=== PATIENT | female | born 1930 | race Caucasian/White ===

== ENCOUNTER 2019-09-15 09:16 | Inpatient (IN) | payer MEDICARE, MEDICAID ==
[2019-09-15] MEDS ORDERED: methylPREDNISolone Sod Succ/PF 125 MG/2 ML VIAL ONE (09:45)
--- NOTE | 2019-09-15 09:49 | RAD ---
RADIOGRAPH CHEST 1 VIEW: DATE: 09/15/2019 TIME: 9:22 AM HISTORY: 88-year-old female with productive cough and dyspnea COMPARISON: none FINDINGS: There is a mild infiltrate at the right lung base. No cardiomegaly or pulmonary edema. Left lung is c lear. Possible small right pleural effusion. No pneumothorax. IMPRESSION: Evidence for pneumonia at the right lung base.
[2019-09-15 10:07] LABS: ALT (SGPT) Less than 7 U/L (8-55); AST (SGOT) 20 U/L (5-34); Albumin 3.7 g/dL (3.4-4.8); Alkaline Phosphatase 115 U/L (40-110); Anion Gap 13 mmol/L (10-20); BUN (Urea Nitrogen) 21 mg/dL (9.8-20.1); Bilirubin, Total 0.9 mg/dL (0.2-1.2); Calc. Creatinine Clearance 0 mL/min (70-130); Calcium 9.3 mg/dL (7.8-10.44); Carbon Dioxide 28 mmol/L (23-31); Chloride 91 mmol/L (98-107); Estimated GFR-MDRD 36; Globulin 2.7 g/dL (2.4-3.5); Glucose 186 mg/dL (83-110); Potassium 4.2 mmol/L (3.5-5.1); Protein, Total 6.4 g/dL (6.0-8.3); Sodium 128 mmol/L (136-145)
[2019-09-15 10:11] LABS: Hemoglobin 13.2 g/dL (12.0-16.0); Mean Corpuscular HGB CONC 33.1 g/dL (32.0-36.0); Mean Corpuscular Hemoglobin 32.4 pg (27.0-31.0); Mean Corpuscular Volume 97.8 fL (78.0-98.0); Mean Platelet Volume 9.4 fL (7.4-10.4); Platelet Count 286 thou/uL (130-400); RBC Distribution Width 11.7 % (11.5-14.5); Red Blood Cell (RBC) Count 4.07 mill/uL (4.20-5.40)
[2019-09-15 10:17] LABS: CKMB 2.2 ng/mL (0-6.6)
[2019-09-15 10:28] LABS: Band 4 % (5-11); Eosinophils 1 % (0-10); Lymphocytes 5 % (21-51); MDiff Complete? YES; Monocytes 9 % (0-10); Neutrophil 81 % (42-75); Platelet Morphology Comment Appears Adequate; RBC Morphology Normal; White Blood Cell (WBC) Count 23.7 thou/uL (4.8-10.8)
[2019-09-15] MEDS ORDERED: Sodium Chloride 0.9% 100 ML ONE (10:54)
[2019-09-15] MEDS ORDERED: Cefepime 2 GM VIAL ONE (10:54)
[2019-09-15] MEDS ORDERED: Ondansetron PF 4 MG/2 ML Vial IVP PRN (14:39)
[2019-09-15 15:09] LABS: Lactic Acid 2.1 mmol/L (0.5-2.2)
--- NOTE | 2019-09-15 15:35 | HP ---
PRIMARY CARE PHYSICIAN: Out of town. CHIEF COMPLAINT: Shortness of breath, cough, and weakness x5-6 days. HISTORY OF PRESENT ILLNESS: An 88-year-old female who was visiting the town with a past medical history of COPD, prior nicotine dependence, hypertension, dyslipidemia, CHF of unspecified type, unspecified heart murmur, hypothyroidism, osteoarthritis, who was brought in to [facility] by her son for a 6-day history of worsening dyspnea and increased weakness associated with intermittent nonproductive cough, difficulty in expectorating, not relieved with 3 times per day albuterol nebulizer treatments, and complains of increased sinus drainage, prompting ER evaluation. The patient denies any headaches, fevers, chills, nausea, vomiting, diarrhea, dizziness or disorientation, near-syncope, or syncope. She denies any recent sick contacts. She has received influenza vaccine this season. She denies any changes to her medication regimen. In the ER, T-max was afebrile. Initial lactic acid was 3.2 with white blood cell count of 23.7. Chemistries revealing hyponatremia with BUN and creatinine of 21/1.37 and chest x-ray, one view, revealing right lower lobe infiltrate. Influenza antigen was negative. The patient was administered 1 L normal saline bolus, nebulized bronchodilator, and 25 mg IV Solu-Medrol, IV Levaquin, IV cefepime, and admitted for further inpatient evaluation for right lower lobe pneumonia and COPD exacerbation. Oxygen saturation has not been hypoxic. At bedside, the patient reports feeling a little better since arrival. She offers no other acute complaints and feels overall weak. She notes okay appetite. She denies any earaches or headache complaints. She recently traveled from to [place] via airplane and denies any prolonged immobility, lower extremity asymmetry or pain, and denies any personal or family history of venous thromboembolism. PAST MEDICAL HISTORY: COPD, prior nicotine dependence, hypertension, dyslipidemia, congestive heart failure unspecified time, unspecified murmur, hypothyroidism, osteoarthritis. PAST SURGICAL HISTORY: Multiple tumor removal. SOCIAL HISTORY: The patient admits to prior tobacco use, none currently. She uses a walker at baseline. She does not use home oxygen. ALLERGIES: LISTED TO PENICILLIN, STREPTOMYCIN, XANAX, AND TYLENOL. REVIEW OF SYSTEMS: Pertinent positives as per HPI. Remainder review of systems negative. HOME MEDICATIONS: Reviewed as per admission medication reconciliation. FAMILY HISTORY: The patient's father from heart disease at age 55. The patient has family history of lung disease as well too. PHYSICAL EXAMINATION: VITAL SIGNS: T-max afebrile 99.2, pulse 85 to 101, blood pressure ranges from 129/63 to 179/84, oxygen 94% to 97% on room air, respirations 14 to 16 and unlabored. GENERAL APPEARANCE: This is an elderly, frail-appearing female, who is awake, alert, oriented, malaise in appearance. HEENT: Normocephalic, atraumatic. There is chronic facial asymmetry. Pupils equally round. Extraocular muscles intact. NECK: Supple. CARDIOVASCULAR: S1 and S2, regular rate and rhythm. Harsh murmur noted in the left parasternal border. No chest wall tenderness to palpation. LUNGS: Nonlabored respiration on bilateral posterior auscultation, diminished inspiratory effort with poor air movement and coarse breath sounds throughout, presumably in the bases, right greater than left. ABDOMEN: Soft, nontender, nondistended. EXTREMITIES: No edema, cyanosis, or deformity. SKIN: Warm to touch without rash or pallor or abrasion. LABORATORY DATA: WBC 23.7, H and H 13.2/39.8, and platelets 286. Sodium 128, potassium 4.2, chloride 91, bicarb 28, glucose 186, BUN and creatinine 21/1.37, and GFR 36. Lactic acid 3.2 with repeat pending. Troponin-I 0.033 with repeat pending. Influenza antigen negative. IMAGING STUDIES: One-view chest x-ray personally reviewed, reveals evidence for pneumonia at the right lung base. No cardiomegaly or pulmonary edema. ASSESSMENT: 1. Acute exacerbation of chronic obstructive pulmonary disease secondary to community-acquired pneumonia. 2. Community-acquired pneumonia. 3. Hyponatremia. 4. Elevated creatinine of unclear acuity, possibly acute kidney injury. 5. Generalized weakness and deconditioning. 6. Congestive heart failure history of unspecified type, not in exacerbation. 7. Unspecified heart murmur. 8. Hypertension, uncontrolled. 9. Dyslipidemia. 10. Hypothyroidism. PLAN: 1. The patient will be admitted as inpatient status and placed on telemetry monitoring for acute COPD exacerbation secondary to community-acquired pneumonia. We will continue with IV Rocephin, IV Zithromax, continue parenteral glucocorticoids, continue nebulized bronchodilators, continue low rate isotonic saline, and monitor for clinical improvement. We will repeat a.m. labs on 09/16/2019. Home medications will be reconciled once list is available. We will monitor renal function of unclear acuity. Plan of care was discussed with the patient and her son at bedside. 2. DVT prophylaxis: Renally dosed Lovenox. 3. Code status: DNR/DNI as discussed with patient who reports having advanced directives. 4. Check a.m. labs. Job ID: [id number]
[2019-09-15] MEDS: cefTRIAXone\\ROCEPHIN 1 GM in Sodium Chloride 0.9% 100 ML IVPB SCH (17:50)
[2019-09-15] MEDS: Sodium Chloride 0.9% 1,000 ML IV SCH (17:51)
[2019-09-15 18:21] LABS: Troponin I Less than 0.010 ng/mL (< 0.028)
[2019-09-15] MEDS: methylPREDNISolone Sod Succ 40 MG VIAL IVP SCH (21:38)
[2019-09-15 22:49] LABS: Legionella Urinary Ag Negative (Negative)
[2019-09-16 05:24] LABS: Anion Gap 15 mmol/L (10-20); BUN (Urea Nitrogen) 17 mg/dL (9.8-20.1); Calc. Creatinine Clearance 31 mL/min (70-130); Calcium 8.1 mg/dL (7.8-10.44); Carbon Dioxide 20 mmol/L (23-31); Chloride 98 mmol/L (98-107); Estimated GFR-MDRD 61; Glucose 138 mg/dL (83-110); Potassium 4.1 mmol/L (3.5-5.1); Sodium 129 mmol/L (136-145)
[2019-09-16 05:27] LABS: Band 17 % (5-11); Hypochromia SLIGHT = 6-15 cells (100X) (0-5/hpf); Lymphocytes 4 % (21-51); MDiff Complete? YES; Mean Corpuscular HGB CONC 33.5 g/dL (32.0-36.0); Mean Corpuscular Hemoglobin 32.4 pg (27.0-31.0); Mean Corpuscular Volume 96.8 fL (78.0-98.0); Neutrophil 79 % (42-75); Platelet Count 242 thou/uL (130-400); Platelet Morphology Comment Appears Adequate; RBC Distribution Width 11.6 % (11.5-14.5); White Blood Cell (WBC) Count 14.3 thou/uL (4.8-10.8)
[2019-09-16] MEDS: Sodium Chloride 0.9% 1,000 ML IV SCH ×3 (05:57→21:59)
[2019-09-16] MEDS: methylPREDNISolone Sod Succ 40 MG VIAL IVP SCH ×2 (05:57→21:59)
[2019-09-16] MEDS: Azithromycin 500 MG in Sodium Chloride 0.9% 250 ML 250 ML IVPB SCH (08:48)
[2019-09-16] MEDS: Enoxaparin Sodium 40 MG/0.4 ML SYRINGE SC SCH (08:48)
--- NOTE | 2019-09-16 11:38 | PDOC.HOSPP ---
- Subjective Encounter Date: 09/16/19 Encounter Time: 11:38 Subjective: cc: followup for sepsis, cap, copd exacerbation subjective: patient seen at bedside. son present. patient feels better. still feels weak and short of breath. has difficulty expectorating phlegm. felt that breathing treatments helped. nurse notes no acute events. patient wants home medications restarted. - Objective Vital Signs & Weight: Vital Signs (12 hours) Temp Pulse Resp BP Pulse Ox 09/16/19 10:19 87 16 09/16/19 08:22 98.6 F 87 18 182/86 H 93 L 09/16/19 07:26 91 20 09/16/19 04:24 88 18 168/80 H 09/16/19 04:02 97.3 F L 85 20 182/86 H 94 L 09/16/19 00:00 89 163/79 H Weight Weight 96 lb 8 oz I&O: 09/15/19 09/16/19 09/17/19 06:59 06:59 06:59 Intake Total 1022 Output Total 350 Balance 672 Result Diagrams: 09/16/19 04:48 09/16/19 04:48 Hospitalist ROS - Review of Systems Other: ROS: pertinent positives per SUBJECTIVE; remainder ROS negative - Medication Medications: Active Medications Generic Name Dose Route Start Last Admin Trade Name Freq PRN Reason Stop Dose Admin Albuterol/Ipratropium 3 ml 09/15/19 14:46 09/16/19 10:19 Duoneb EZPAP 3 ml [id number] PRN Administration SOB &/or Wheezing Enoxaparin Sodium 40 mg 09/16/19 09:00 09/16/19 08:48 Lovenox SC 40 mg 0900 CRISTIAN Administration Azithromycin 500 mg/ Sodium 250 mls @ 250 mls/hr 09/16/19 09:00 09/16/19 08: 48 Chloride IVPB 250 mls Q24HR CRISTIAN Administration Ceftriaxone Sodium 1 gm/ 100 mls @ 200 mls/hr 09/15/19 16:00 09/15/19 17:50 Sodium Chloride IVPB 100 mls Q24HR CRISTIAN Administration Sodium Chloride 1,000 mls @ 75 mls/hr 09/15/19 15:00 09/16/19 05:57 Normal Saline 0.9% IV 1,000 mls .[id number] CRISTIAN Administration Methylprednisolone Sodium Succinate 40 mg 09/15/19 22:00 09/16/19 05:57 Solu-Medrol IVP 40 mg Q8HR CRISTIAN Administration - Exam General Appearance: awake alert Eye: PERRL, anicteric sclera ENT: normocephalic atraumatic, no oropharyngeal lesions Neck: supple Heart: RRR, no murmur Respiratory: no rales, tachypneic Respiratory - other findings: decreased right basilar breath sounds. no significant wheezing. Extremities: no cyanosis, no clubbing, no edema Skin: normal turgor, no lesions, no rashes Neurological: cranial nerve grossly intact, normal sensation to touch, no focal deficits Musculoskeletal: generalized weakness Psychiatric: normal behavior, A&O x 3, oriented to person, oriented to place Hosp A/P - Plan ASSESSMENT AND PLAN: sepsis due to CAP. continue IV rocephin, IV zithromax, wean IV steroids, continue IVF, start scheduled nebulizers, start mucinex DM, Claritin, consult PT and OT, check ambulatory oxygen and monitor for symptom improvement COPD exacerbation. wean IV steroids, continue nebulizers. RPP negative. Sinus tachycardia. restart atenolol Hypertension, restart home medications DVT px: LMWH Code status: DNR and DNI dispo: continue inpatient monitoring. discharge planning
[2019-09-16] MEDS ORDERED: guaiFENesin/DM ER PO SCH (11:45)
[2019-09-16 13:18] VITALS: BMI 20.1
[2019-09-16] MEDS: cefTRIAXone\\ROCEPHIN 1 GM in Sodium Chloride 0.9% 100 ML IVPB SCH (16:55)
[2019-09-16] MEDS ORDERED: Atorvastatin Calcium 20 MG TAB PO SCH (21:00)
[2019-09-16] MEDS ORDERED: Loratadine 10 MG TAB PO SCH (21:00)
[2019-09-16] MEDS ORDERED: Temazepam 15 MG CAP PO SCH (21:00)
[2019-09-17] MEDS ORDERED: Levothyroxine Sodium 100 MCG TAB PO SCH (06:00)
[2019-09-17] MEDS: methylPREDNISolone Sod Succ 40 MG VIAL IVP SCH (08:01)
[2019-09-17] MEDS: Enoxaparin Sodium 40 MG/0.4 ML SYRINGE SC SCH (08:01)
[2019-09-17] MEDS ORDERED: CeleCOXIB 100 MG CAP PO SCH (09:00)
[2019-09-17] MEDS ORDERED: Atenolol 50 MG TAB PO SCH (09:00)
[2019-09-17] MEDS ORDERED: Aspirin 81 mg Enteric Coated Tablet PO SCH (09:00)
[2019-09-17] MEDS: Azithromycin 500 MG in Sodium Chloride 0.9% 250 ML 250 ML IVPB SCH (09:01)
[2019-09-17 15:56] VITALS: BP 169/69; TEMP 97.8
== END 2019-09-17 15:54 | disposition home health service (06) | DRG 871 ==
LOC: ERS 09:16 → ERHOLD 11:35 → 2NO 16:33
PROVIDERS: ADMIT Emergency Medicine; ATTEND Emergency Medicine
DX: A41.9 Sepsis, unspecified organism (principal); J18.9 Pneumonia, unspecified organism; J44.1 Chronic obstructive pulmonary disease with (acute) exacerbation; J44.0 Chronic obstructive pulmonary disease with (acute) lower respiratory infection; E87.1 Hypo-osmolality and hyponatremia; N17.9 Acute kidney failure, unspecified; Z66 Do not resuscitate; E78.5 Hyperlipidemia, unspecified; E03.9 Hypothyroidism, unspecified; M19.90 Unspecified osteoarthritis, unspecified site; I50.9 Heart failure, unspecified; I11.0 Hypertensive heart disease with heart failure; E78.00 Pure hypercholesterolemia, unspecified; Z87.891 Personal history of nicotine dependence; Z88.0 Allergy status to penicillin; Z88.8 Allergy status to other drugs, medicaments and biological substances; Z90.49 Acquired absence of other specified parts of digestive tract; Z79.899 Other long term (current) drug therapy; Z79.890 Hormone replacement therapy; Z90.710 Acquired absence of both cervix and uterus; Z98.51 Tubal ligation status
CPT/HCPCS: 36415; 71045; 80048; 80053; 82553; 83605; 84484; 85025; 87040; 87804; 87899; 93005; 94640; 94760; 96365; 96366; 96367; 96375; J0456; J0692; J0696; J1650; J1956; J2920; J2930; J3490; J7050; J7620